=== PATIENT | male | born 1990 | race Caucasian/White ===

== ENCOUNTER 2024-06-04 17:32 | Emergency (ER) | payer SELFPAY ==
--- NOTE | 2024-06-04 17:34 | ED.GENMED ---
ED Provider Triage
<Stanton Astudillo Jr., PA-C - Last Filed: 06/04/24 17:37>
-
Patient seen by provider in Triage?: Seen in Triage
Attestation: A medical screening examination has been initiated by a qualified medical provider. Based on the assessment performed at this time, it has been determined that an emergent medical condition may exist and the patient has been informed
that further medical evaluation and possible additional diagnostic testing may be needed.
HPI: 33 y/o M p/w concerns of harming himself. Has fleeting thoughts of suicide but no specific plan. No attempts in the past. No known history of psychiatric illness no daily medications. He claims that he is had multiple different stressors
recently that have led to this. He is seeking psychiatric assessment. He denies having any firearms in the home.
GENERAL: Alert , in no apparent distress
EYE: No visual abnormalities.
NECK: Trachea midline
ENT: No visible abnormalities.
LUNGS: No acute respiratory distress
NEUROLOGICAL: Alert and oriented
SKIN: Skin intact. No visible changes.
MUSCULOSKELETAL: Moving extremities normally
PSYCH: Normal and appropriate interaction.
This is a medical evaluation conducted in person to initiate diagnostic evaluation and provide initial therapeutics. Please see further documentation by the treating clinician.
History of Present Illness
<Stanton Astudillo Jr., PA-C - Last Filed: 06/04/24 17:37>
General
Chief Complaint: Crisis Evaluation
Time Seen by Provider: 06/04/24 17:44
<Russ Kirby DO - Last Filed: 06/04/24 18:15>
General
Source: patient
Exam Limitations: none
History of Present Illness
History of Present Illness:
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
Past History
<Stanton Astudillo Jr., PA-C - Last Filed: 06/04/24 17:37>
Past History
ED Past Medical History: None
ED Past Surgical History: None
Social History
Tobacco: Former smoker
Alcohol: None
Drug: None
Family History
Family History: Negative Diabetes or Hypertension
<Russ Kirby DO - Last Filed: 06/04/24 18:15>
Past History
ED Past Medical History: Psychiatric
Social History
Living: with family
Employment: Employed
Phy Exam
<Russ Kirby DO - Last Filed: 06/04/24 18:15>
Physical Exam
Physical Exam:
Physical Exam
General: no apparent distress, not acutely ill
Neck: No jaundice
Lungs: no acute respiratory distress.
Neuro: alert and oriented. no focal neurological deficits
Skin: no rash
Psychiatric: Cooperative, admits to suicidal thoughts not released
Extremities: no edema.
Course
<Stanton Astudillo Jr., PA-C - Last Filed: 06/04/24 17:37>
Orders/Labs/Results
Orders:
Orders
06/04/24 17:35
EKG [Electrocardiogram (*1)] Urgent
Reason for Study: Fatigue / Weakness
06/04/24 17:36
EKG- Treatment ONCE
06/04/24 17:47
BMP [Basic Metabolic Panel] Urgent
CBC/With Diff [Complete Blood Count/With Diff] Urgent
06/04/24 18:03
Crisis Consult Urgent
Reason for Consult: Suicidal would like to sign himself in the hospital
Abnormal Lab Results
06/04/24
17:47
WBC 11.7 H 10^3/uL
(4.8-10.8)
Absolute Neuts (auto) 8.5 H 10^3/uL
(1.4-6.5)
Absolute Monos (auto) 0.9 H 10^3/uL
(0.1-0.6)
Lymphocytes % 18.5 L %
(20.5-51.1)
06/04/24 17:47
Vital Signs
Initial and Last Documented VS:
Initial Vital Signs
Temp Pulse Resp BP Pulse Ox
98.0 F 120 18 144/91 97
06/04/24 17:36 06/04/24 17:36 06/04/24 17:36 06/04/24 17:36 06/04/24 17:36
Last Documented Vital Signs
Temp Pulse Resp BP Pulse Ox
98.0 F 120 18 144/91 97
06/04/24 17:36 06/04/24 17:36 06/04/24 17:36 06/04/24 17:36 06/04/24 17:36
<Russ Kirby, DO - Last Filed: 06/04/24 18:15>
Orders/Labs/Results
Orders:
Orders
06/04/24 17:35
EKG [Electrocardiogram (*1)] Urgent
Reason for Study: Fatigue / Weakness
06/04/24 17:36
EKG- Treatment ONCE
06/04/24 17:47
BMP [Basic Metabolic Panel] Urgent
CBC/With Diff [Complete Blood Count/With Diff] Urgent
06/04/24 18:03
Crisis Consult Urgent
Reason for Consult: Suicidal would like to sign himself in the hospital
Abnormal Lab Results
06/04/24
17:47
WBC 11.7 H 10^3/uL
(4.8-10.8)
Absolute Neuts (auto) 8.5 H 10^3/uL
(1.4-6.5)
Absolute Monos (auto) 0.9 H 10^3/uL
(0.1-0.6)
Lymphocytes % 18.5 L %
(20.5-51.1)
06/04/24 17:47
Vital Signs
Initial and Last Documented VS:
Initial Vital Signs
Temp Pulse Resp BP Pulse Ox
98.0 F 120 18 144/91 97
06/04/24 17:36 06/04/24 17:36 06/04/24 17:36 06/04/24 17:36 06/04/24 17:36
Last Documented Vital Signs
Temp Pulse Resp BP Pulse Ox
98.0 F 120 18 144/91 97
06/04/24 17:36 06/04/24 17:36 06/04/24 17:36 06/04/24 17:36 06/04/24 17:36
<Russ Kirby DO - Last Filed: 06/04/24 18:15>
MDM/Problems Addressed
Differential Diagnosis Includes:
Suicidal ideation anxiety depression
MDM/Problems Addressed:
Suicidal thoughts no weapons nontoxic he did denies any ingestion
<Russ Kirby DO - Last Filed: 06/04/24 18:15>
*Critical Care Note
Total Time (30-74mins, 75-104mins- exclusive of procedures): Not Applicable
<Russ Kirby DO - Last Filed: 06/04/24 18:15>
Update Note
Update Note:
Patient states he is feeling suicidal would like to sign himself into a psychiatric hospital
ED Attending Note
<Stanton Astudillo Jr., HUONG - Last Filed: 06/04/24 17:37>
-
Portions of this chart may have been created with voice recognition software.� Occasional wrong word or��sound alike� substitutions may have occurred due to the inherent limitations of voice recognition software.
Discharge Plan
Departure
Prescriptions:
No Action
No Current Medications
0
Referrals:
UNKNOWN - PT NOT,INTERVIEWE [Family Provider] -
Interventions
Interventions:
*Risk Screen - Suicide Last Done: 06/04/24 17:37
*Neglect/Abuse Screening Last Done: 06/04/24 17:36
Discharge Date and Time
Print Language: KOSOVAN
[2024-06-04 17:36] VITALS: BP 144/91
[2024-06-04 17:56] LABS: % Basophils 0.4 % (0-2); % Eosinophils 0.4 % (0-6); % Immature Granulocytes 0.3 % (0-0.5); % Lymphocytes 18.5 % (20.5-51.1); % Monocytes 7.7 % (1.7-9.3); % Neutrophils 72.7 % (42.2-75.2); Absolute Basophils 0.1 10^3/uL (0-0.2); Absolute Eosinophils 0.1 10^3/uL (0-0.7); Absolute Lymphocytes 2.2 10^3/uL (1.2-3.4); Absolute Monocytes 0.9 10^3/uL (0.1-0.6); Absolute Neutrophils 8.5 10^3/uL (1.4-6.5); Hematocrit 46.1 % (39.0-52.0); Hemoglobin 16.1 g/dL (13.0-18.0); Mean Corp Hgb Conc. 34.9 g/dL (33.0-37.0); Mean Corpuscular Hgb 30.4 pg (27.0-31.0); Mean Platelet Volume 8.9 fL (7.4-10.4); Nucleated Red Blood Cells % 0 % (-); Platelet Count 273 10^3/uL (130-400); Red Cell Dist. Width 11.9 % (11.5-14.5); White Blood Cell Count 11.7 10^3/uL (4.8-10.8)
[2024-06-04 18:18] LABS: Blood Urea Nitrogen 17 mg/dl (9-20); Calcium 9.5 mg/dl (8.4-10.2); Carbon Dioxide 26 mmol/L (22-30); Chloride 98 mmol/L (98-107); Glucose 102 mg/dl (70-99); Potassium 3.7 mmol/L (3.5-5.1); Sodium 135 mmol/L (135-145); eGFR > 60.00
--- NOTE | 2024-06-04 18:24 | ED.GENMED ---
History of Present Illness
General
Chief Complaint: Crisis Evaluation
Time Seen by Provider: 06/04/24 17:44
Past History
Past History
ED Past Medical History: Psychiatric
ED Past Surgical History: None
Social History
Tobacco: Former smoker
Alcohol: None
Drug: None
Living: with family
Employment: Employed
Family History
Family History: Negative Diabetes or Hypertension
Course
Orders/Labs/Results
Orders:
Orders
06/04/24 17:35
EKG [Electrocardiogram (*1)] Urgent
Reason for Study: Fatigue / Weakness
06/04/24 17:36
EKG- Treatment ONCE
06/04/24 17:47
BMP [Basic Metabolic Panel] Urgent
CBC/With Diff [Complete Blood Count/With Diff] Urgent
06/04/24 18:03
Crisis Consult Urgent
Reason for Consult: Suicidal would like to sign himself in the hospital
Abnormal Lab Results
06/04/24
17:47
WBC 11.7 H 10^3/uL
(4.8-10.8)
Absolute Neuts (auto) 8.5 H 10^3/uL
(1.4-6.5)
Absolute Monos (auto) 0.9 H 10^3/uL
(0.1-0.6)
Lymphocytes % 18.5 L %
(20.5-51.1)
Glucose 102 H mg/dl
(70-99)
06/04/24 17:47
06/04/24 17:47
Vital Signs
Initial and Last Documented VS:
Initial Vital Signs
Temp Pulse Resp BP Pulse Ox
98.0 F 120 18 144/91 97
06/04/24 17:36 06/04/24 17:36 06/04/24 17:36 06/04/24 17:36 06/04/24 17:36
Last Documented Vital Signs
Temp Pulse Resp BP Pulse Ox
98.0 F 120 18 144/91 97
06/04/24 17:36 06/04/24 17:36 06/04/24 17:36 06/04/24 17:36 06/04/24 17:36
*Pulse Oximetry
Patient hypoxic: no
*EKG
Interpreted by ED Provider?: Yes
Interpretation: normal
Comparison EKG: no comparison EKG present
Rate: normal
Rhythm: sinus
Ischemia: no ischemia
*[facility] Monitor Interpretation
Rate: normal
Interpretation: normal
Heart Rate: 78
Rhythm: sinus
*Critical Care Note
Total Time (30-74mins, 75-104mins- exclusive of procedures): Not Applicable
Update Note
Update Note:
Update labs are noted EKG noted patient medically clear for psychiatric evaluation placement
ED Attending Note
-
Portions of this chart may have been created with voice recognition software.� Occasional wrong word or��sound alike� substitutions may have occurred due to the inherent limitations of voice recognition software.
Discharge Plan
Departure
Patient Disposition: Psych Facility
Date of Disposition: 06/04/24
Time of Disposition: 18:25
Condition: Fair
Covid-19: Not Applicable
Discharge Problem:
Suicidal ideation
Prescriptions:
No Action
No Current Medications
0
Referrals:
UNKNOWN - PT NOT,INTERVIEWE [Family Provider] -
Interventions
Interventions:
*Risk Screen - Suicide Last Done: 06/04/24 17:37
*Neglect/Abuse Screening Last Done: 06/04/24 17:36
Discharge Date and Time
Print Language: UKRAINIAN
[2024-06-04 19:30] VITALS: BP 133/84
--- NOTE | 2024-06-04 21:05 | EDRN ---
Patient discharged home by crisis.
== END 2024-06-04 21:05 ==
LOC: EMR 17:32
PROVIDERS: Physician Assistant; EMERGENCY PHYSICIAN Emergency Medicine
DX: R45.851 Suicidal ideations (principal); Z87.891 Personal history of nicotine dependence
CPT/HCPCS: 99285; 80048; 85025; 93005